=== PATIENT | male | born 1975 | race Caucasian/White ===

== ENCOUNTER 2017-11-01 12:18 | Outpatient (CLI) | payer OTHER ==
--- NOTE | 2017-11-01 18:27 | MRI Report ---
EXAM: LEFT KNEE MRI WITHOUT CONTRAST EXAM DATE: 11/01/2017 01:04 PM. CLINICAL HISTORY: Pain in left knee. COMPARISON: None. TECHNIQUE: Multiplanar, multisequence T1-weighted and fluid-sensitive sequences of the knee without c ontrast. Other: None. FINDINGS: Bones: Tiny amount of subjacent marrow edema at the trochlear groove centrally. Series 501, image 14. 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 No loose bodies. Medial Meniscus: Complex tear mid body and posterior horn medial meniscus, no displaced fragment. Lateral Meniscus: The lateral meniscus is intact. Cruciate Ligaments: The anterior and posterior cruciate ligaments are intact. Collateral Ligaments: MCL shows some surrounding edematous change, no focal fluid-filled gap. LCL is normal. Tendons: The quadriceps, patellar, semimembranosus, and popliteus tendons are unremarkable. Musculature: No edema or fatty atrophy. Other: Small joint effusion. No popliteal cyst. No loose bodies. The medial and lateral retinacula ar e intact. The subcutaneous tissues and fat pads are unremarkable. IMPRESSION: 1. Some subjacent marrow edema at the central trochlear groove. Some grade 3-4 chondromalacia at the trochlear groove and also there is some fissuring at the patellar apex. No loose bodies. 2. Complex tear mid body and posterior horn medial meniscus. MCL strain, no tear. 3. Lateral compartment appears unremarkable, cruciates and LCL also normal. [facility]CULOSKE[facility]IOLOG[facility] SECTION Referring Provider Line: [phone] SITE ID: [id number]
== END 2017-11-01 12:19 | disposition home or self-care (01) ==
LOC: DI 12:18
DX: S83.242A Other tear of medial meniscus, current injury, left knee, initial encounter (principal); M94.262 Chondromalacia, left knee; M25.562 Pain in left knee

== ENCOUNTER 2023-07-26 09:21 | Outpatient (CLI) | payer OTHER ==
--- NOTE | 2023-07-26 13:17 | MRI Report ---
PROCEDURE: SHOULDER WO - LT INDICATIONS: LEFT SHOULDER PAIN TECHNIQUE: Noncontrast oblique coronal T2 fast spin echo with fat saturation, oblique sagittal T1 spin echo and T2 fast spin echo with fat saturation, axial T1 spin echo and T2 fast spin echo with fat saturation t hrough the shoulder. COMPARISON: None. FINDINGS: Image quality: Excellent. Rotator cuff: Small calcifications are likely present within distal supraspinatus near its insertion on humeral head suggestive of calcific tendinitis. Moderate grade articular and bursal surface partia l-thickness tear involving distal supraspinatus at its insertion on humeral head is seen extending to musculotendinous junction. Low-grade articular surface partial-thickness tear involving distal infra spinatus at its insertion on humeral head is seen. The subscapularis tendon is intact. No full-thickn ess rotator cuff tendon rupture. No rotator cuff muscle atrophy on sagittal images. Bones and bursae: No bone marrow contusions or fractures. [id number] acromioclavicular joint o steoarthritic changes are seen with joint space narrowing and downward osteophyte formation depressin g on musculotendinous junction. The acromion demonstrates conventional anatomy, without an os acromia le. Small amount of subacromial subdeltoid bursal fluid is seen, no gross loose bodies. Capsule and soft tissues: In the absence of intra-articular contrast, the labrum and glenohumeral li gaments appear intact. The long head of the biceps tendon demonstrates normal location and morpholog y. The rotator interval appears normal, without fibrosis. The coracohumeral ligament is normal in t hickness. IMPRESSION: 1. Suggestion of calcific tendinitis involving distal supraspinatus at its insertion on humeral head. Moderate grade articular and bursal surface partial-thickness tear is also seen involving distal sup raspinatus extending to musculotendinous junction. Low-grade articular surface partial-thickness tear involving distal infraspinatus. No full-thickness rotator cuff tendon rupture. 2. Mild to moderate acromioclavicular joint osteophyte is. No fracture or dislocation. Small amount o f subacromial subdeltoid bursal fluid, no gross loose bodies. 3. No gross focal labral tear. Reviewed by: Michael Adame MD on 07/26/2023 1:16 PM PST Approved by: Michael Adame MD on 07/26/2023 1:16 PM [facility] Station ID: [id number]
== END 2023-07-26 09:22 | disposition home or self-care (01) ==
LOC: DI 09:21
PROVIDERS: ATTEND Student in an Organized Health Care Education/Training Program
DX: M75.112 Incomplete rotator cuff tear or rupture of left shoulder, not specified as traumatic (principal); M19.012 Primary osteoarthritis, left shoulder